=== PATIENT | female | born 1990 | race Two or more races ===

== ENCOUNTER 2019-01-11 20:46 | Emergency (ER) | payer OTHER ==
[~2019-01-11] VITALS: Ht 152.4 cm; Wt 54.4 kg
[2019-01-11 22:06] VITALS: BP 112/73
[2019-01-11] MEDS ORDERED: MAGNESIUM HYDROXIDE 30 ML UDC PO ONE (22:30)
[2019-01-11] MEDS ORDERED: MAGNESIUM CITRATE 296 ML BOTTLE PO ONE (22:30)
[2019-01-11] MEDS ORDERED: MAGNESIUM CITRATE 296 ML BOTTLE ONE (22:45)
[2019-01-11] MEDS ORDERED: MAGNESIUM HYDROXIDE 30 ML UDC ONE (22:45)
== END 2019-01-11 23:57 | disposition home or self-care (01) ==
LOC: ER 20:47
DX: K59.00 Constipation, unspecified (principal); R10.84 Generalized abdominal pain